=== PATIENT | male | born 1965 | race African-American/Black ===

== ENCOUNTER 2025-09-02 14:17 | Emergency (ER) | payer OTHER ==
[~2025-09-02 14:17] MED LIST: Iopamidol 370 76% 100 ML VIAL ONE
[2025-09-02] MEDS ORDERED: Lidocaine 2% 6 ML (Jelly) SYR ONE (14:33)
[2025-09-02] MEDS ORDERED: Lidocaine Viscous Sol 2% 15 ml UD Cup ONE (14:33)
[2025-09-02 15:00] LABS: #Basophils 0.1 thou/uL (0.0-0.2); #Eosinophils 0.2 thou/uL (0.0-0.7); #Lymphocytes 0.9 thou/uL (1.20-3.40); #Monocytes 0.5 thou/uL (0.11-0.59); #Neutrophils 5.1 thou/uL (1.40-6.50); %Basophils 1.5 % (0.0-1.0); %Eosinophils 2.3 % (0.0-10.0); %Lymphocytes 12.8 % (21.0-51.0); %Monocytes 6.9 % (0.0-10.0); %Neutrophils 76.5 % (42.0-75.0); Hematocrit 43.9 % (42.0-52.0); Hemoglobin 15.0 g/dL (14.0-18.0); Mean Corpuscular Hemoglobin 29.8 pg (27.0-31.0); Mean Corpuscular Volume 87.4 fl (78.0-98.0); Platelet Count 327 10x3/uL (130-400); Red Blood Cell (RBC) Count 5.02 mill/uL (4.70-6.10); White Blood Cell (WBC) Count 6.7 10x3/uL (4.8-10.8)
[2025-09-02 15:12] LABS: ALT (SGPT) 23 U/L (Less than 45); AST (SGOT) 47 U/L (11-34); Albumin 3.8 g/dL (3.1-4.5); Alkaline Phosphatase 120 U/L (40-110); Anion Gap 13 mmol/L (10-20); BUN (Urea Nitrogen) 10 mg/dL (8.4-25.7); Bilirubin, Total 0.3 mg/dL (0.3-1.2); Calc. Creatinine Clearance 0 mL/min (70-130); Calcium 9.0 mg/dL (7.8-10.44); Carbon Dioxide 25 mmol/L (22-29); Chloride 103 mmol/L (98-107); Globulin 3.1 g/dL (2.4-3.5); Glucose 111 mg/dL (70-105); Lipase 51 U/L (8-78); Potassium 3.9 mmol/L (3.5-5.1); Sodium 137 mmol/L (136-145)
[2025-09-02 15:19] LABS: INR-International Normal Ratio 1.1; PTT 28.0 sec (22.9-36.1); Prothrombin Time 13.9 sec (12.0-14.7)
[2025-09-02] MEDS ORDERED: Lidocaine 1% w/Epinephrine 1:100K 20 ML VIAL ONE (15:44)
[2025-09-02] MEDS ORDERED: Bacitracin 1 PK ONE (18:09)
== END 2025-09-02 18:40 | disposition short-term general hospital (02) ==
LOC: NAV ERS 14:17
DX: S02.40DA Maxillary fracture, left side, initial encounter for closed fracture (principal); S02.2XXA Fracture of nasal bones, initial encounter for closed fracture; S02.32XA Fracture of orbital floor, left side, initial encounter for closed fracture; S02.31XA Fracture of orbital floor, right side, initial encounter for closed fracture; S22.31XA Fracture of one rib, right side, initial encounter for closed fracture; S01.512A Laceration without foreign body of oral cavity, initial encounter; S40.011A Contusion of right shoulder, initial encounter; K00.0 Anodontia; J44.9 Chronic obstructive pulmonary disease, unspecified; E11.9 Type 2 diabetes mellitus without complications; F17.210 Nicotine dependence, cigarettes, uncomplicated; Z23 Encounter for immunization; W55.22XA Struck by cow, initial encounter; Y92.71 Barn as the place of occurrence of the external cause; Y99.0 Civilian activity done for income or pay
CPT/HCPCS: 12013; 36415; 70450; 70486; 71260; 72125; 74177; 80053; 83690; 85025; 85610; 85730; 86850; 86900; 86901; 90471; 90715; 93005; 94760; 96374; 96376; J2270; J2272; Q9967